=== PATIENT | female | born 1990 | race Caucasian/White ===

== ENCOUNTER 2017-11-21 08:46 | Outpatient (CLI) | payer OTHER ==
[~2017-11-21] VITALS: Ht 165.1 cm; Wt 80.0 kg
[2017-11-21 09:22] VITALS: BP 120/80
[2017-11-21] MEDS ORDERED: PREN1TAB10 PO (09:47)
== END 2017-11-21 10:08 | disposition home or self-care (01) ==
LOC: LDOP 08:46
PROVIDERS: ATTEND Obstetrics & Gynecology
DX: O42.92 Full-term premature rupture of membranes, unspecified as to length of time between rupture and onset of labor (principal); O34.219 Maternal care for unspecified type scar from previous cesarean delivery; Z3A.39 39 weeks gestation of pregnancy
CPT/HCPCS: 59025; 84112; 99201; G0463

== ENCOUNTER 2017-11-28 02:36 | Outpatient (CLI) | payer OTHER ==
[~2017-11-28] VITALS: Ht 162.6 cm; Wt 80.0 kg
[~2017-11-28 02:36] MED LIST: PREN1TAB10 PO
[2017-11-28 03:46] VITALS: BP 122/65
== END 2017-11-28 04:52 | disposition home or self-care (01) ==
LOC: LDOP 02:36
PROVIDERS: ATTEND Obstetrics & Gynecology
DX: O62.9 Abnormality of forces of labor, unspecified (principal); Z3A.00 Weeks of gestation of pregnancy not specified
CPT/HCPCS: 59025; 99211; G0463